=== PATIENT | female | born 2000 | race Two or more races ===

== ENCOUNTER 2023-04-02 03:31 | Emergency (ER) | payer SELFPAY ==
[2023-04-02 04:21] LABS: APPEARANCE,URINE CLEAR; BILIRUBIN,URINE NEGATIVE (NEGATIVE); COLOR,URINE YELLOW; GLUCOSE,URINE NEGATIVE (NEGATIVE); KETONES,URINE NEGATIVE (NEGATIVE); LEUKOCYTE ESTERASE,URINE NEGATIVE (NEGATIVE); NITRITE,URINE NEGATIVE (NEGATIVE); OCCULT BLOOD,URINE NEGATIVE (NEGATIVE); PROTEIN,URINE NEGATIVE (NEGATIVE)
[2023-04-02] MEDS ORDERED: Polyethylene Glycol 3350 Powder 17 GM Packet PO ONE (04:27)
[2023-04-02 04:29] LABS: BASOPHILS PERCENT AUTO 0.3 % (0.0-1.5); EOSINOPHILS ABSOLUTE AUTO 0.3 K/uL (0.0-0.7); HEMATOCRIT 40.4 % (36.0-46.0); HEMOGLOBIN 12.9 g/dL (12.0-16.0); LYMPHOCYTES ABSOLUTE AUTO 2.8 K/uL (0.6-2.4); LYMPHOCYTES PERCENT AUTO 28.3 % (16.0-40.0); MEAN CORPUSCULAR HEMOGLOBIN 27.3 pg (27.0-32.0); MEAN CORPUSCULAR HGB CONC 31.9 g/dL (31.0-37.0); MEAN CORPUSCULAR VOLUME 85.4 fL (80.0-98.0); MONOCYTES ABSOLUTE AUTO 0.9 K/uL (0.0-0.8); MONOCYTES PERCENT AUTO 8.5 % (0.0-15.0); NEUTROPHILS PERCENT AUTO 59.9 % (48.0-80.0); NRBC ABSOLUTE 0 K/uL; PLATELET COUNT,PLT 378 K/uL (150-400); RED BLOOD CELL COUNT 4.73 M/uL (4.30-5.90); WHITE BLOOD CELL COUNT,WBC 9.99 K/uL (4.0-11.0)
[2023-04-02 04:46] LABS: A/G RATIO 0.9 (0.9-1.6); ALBUMIN 3.3 g/dL (3.4-5.0); BILIRUBIN TOTAL 0.3 mg/dL (0.2-1.0); CALCIUM 8.3 mg/dL (8.5-10.1); CARBON DIOXIDE,CO2 26.6 mmol/L (21.0-32.0); CREATININE 0.8 mg/dL (0.6-1.0); EST CRCL DRUG DOSING (CG) 96.06 mL/min; POTASSIUM,K 3.4 mmol/L (3.5-5.1)
== END 2023-04-02 05:15 | disposition home or self-care (01) ==
LOC: MW.ED 03:31
DX: R10.9 Unspecified abdominal pain (principal); Z91.09 Other allergy status, other than to drugs and biological substances
CPT/HCPCS: 36415; 80053; 81003; 83690; 84703; 85025; 99284; A9270; 99283

== ENCOUNTER 2025-05-12 18:14 | Inpatient (IN) | payer BC, MEDICAID ==
[2025-05-12] MEDS ORDERED: Sodium Chloride 0.9% 10 ML Syringe FLUSH PRN (20:32)
[2025-05-12] MEDS ORDERED: Carboprost Tromethamine 250 MCG/1 mL Vial IM PRN (20:32)
[2025-05-12] MEDS ORDERED: Sodium Chloride 0.9% 2.5 ML Syringe FLUSH PRN (20:32)
[2025-05-12] MEDS ORDERED: Water For Irrigation,Sterile 1,000 ML Container IRR PRN (20:32)
[2025-05-12] MEDS ORDERED: Oxytocin/0.9 % Sodium Chloride 30 UNIT/500 ML BAG IV SCH (20:45)
[2025-05-12 21:44] LABS: MEAN PLATELET VOLUME 9.2 fL (9.4-12.3); NRBC ABSOLUTE 0.00 K/uL (0.00-0.02); NRBC PERCENT 0.0 /100WBC (0.0-0.2); PLATELET COUNT,PLT 379 K/uL (150-400); RED BLOOD CELL COUNT 3.97 M/uL (4.10-5.30); WHITE BLOOD CELL COUNT,WBC 12.31 K/uL (3.9-11.3)
[2025-05-12] MEDS ORDERED: Terbutaline 1 MG/ML SDV SUBCUT PRN (22:43)
[2025-05-12] MEDS: Misoprostol 25 MCG (1/4 of 100 MCG) Tab VAG PRN (23:05)
[2025-05-12] MEDS: Misoprostol 25 MCG (1/4 of 100 MCG) Tab PO PRN (23:05)
[2025-05-13] MEDS: Butorphanol 1 MG/ML SDV IVPUSH PRN (04:56)
[2025-05-13] MEDS: Lactated Ringers 1,000 ML IV SCH (07:30)
[2025-05-13] MEDS ORDERED: ePHEDrine 50 MG/ML SDV IVPUSH PRN (07:41)
[2025-05-13] MEDS ORDERED: dexmedeTOMIDine HCl 200 MCG/2 ML SDV EPIDUR SCH (07:45)
[2025-05-13] MEDS: Ropivacaine HCl/PF 400 MG in Premix Bag 1 BAG EPIDUR SCH (08:22)
[2025-05-13] MEDS: Oxytocin/0.9 % Sodium Chloride 30 UNIT/500 ML BAG IV SCH (10:37)
[2025-05-13] MEDS: Ondansetron 4 MG/2 ML SDV IVPUSH PRN (15:52)
[2025-05-13] MEDS ORDERED: Aluminum Hydroxide/Magnesium Hydroxide/Simethicone Susp 30 ML Cup PO PRN (18:14)
[2025-05-13] MEDS ORDERED: Benzocaine/Menthol 20%-0.5% Spray 78 GM Cannister TOP PRN (18:14)
[2025-05-13 18:24] LABS: PH,UMBILICAL ARTERIAL 7.19 (7.18-7.38); PH,UMBILICAL VENOUS 7.33 (7.25-7.45)
[2025-05-13] MEDS: Witch Hazel Medicated Pads 40/Jar TOP PRN (21:13)
[2025-05-13] MEDS: Lanolin 100% Cream 7 GM Tube TOP PRN (21:14)
[2025-05-14 05:43] LABS: MEAN PLATELET VOLUME 9.4 fL (9.4-12.3); NRBC ABSOLUTE 0.00 K/uL (0.00-0.02); NRBC PERCENT 0.0 /100WBC (0.0-0.2); PLATELET COUNT,PLT 299 K/uL (150-400); RED BLOOD CELL COUNT 3.37 M/uL (4.10-5.30); WHITE BLOOD CELL COUNT,WBC 22.10 K/uL (3.9-11.3)
[2025-05-14 05:58] LABS: LYMPHOCYTES ABSOLUTE MAN 2.87 K/uL (1.00-4.80); LYMPHOCYTES PERCENT MAN 13 % (24-44); MONOCYTES ABSOLUTE MAN 2.65 K/uL (0.00-0.80); MONOCYTES PERCENT MAN 12 % (0-8); SEG NEUTROPHILS ABSOLUTE MAN 16.58 K/uL (1.80-7.70); SEG NEUTROPHILS PERCENT MAN 75 % (41-71)
[2025-05-14] MEDS ORDERED: Ketorolac 30 MG/ML SDV IVPUSH SCH (12:00)
== END 2025-05-14 20:50 | disposition home or self-care (01) | DRG 560 ==
LOC: MW.OB 18:14 → OBSVTOIN 05-13 18:14 → MW.OB 05-13 21:50
PROVIDERS: ADMIT Obstetrics & Gynecology; ATTEND Obstetrics & Gynecology
PROC: 10E0XZZ Delivery of Products of Conception, External Approach (ICD-10-PCS; principal; 2025-05-13)
PROC: 3E0R3BZ Introduction of Anesthetic Agent into Spinal Canal, Percutaneous Approach (ICD-10-PCS; 2025-05-13)
PROC: 3E033VJ Introduction of Other Hormone into Peripheral Vein, Percutaneous Approach (ICD-10-PCS; 2025-05-13)
PROC: 0KQM0ZZ Repair Perineum Muscle, Open Approach (ICD-10-PCS; 2025-05-13)
DX: O99.214 Obesity complicating childbirth (principal); O99.02 Anemia complicating childbirth; Z87.891 Personal history of nicotine dependence; Z79.899 Other long term (current) drug therapy; O70.1 Second degree perineal laceration during delivery; Z3A.38 38 weeks gestation of pregnancy; Z37.0 Single live birth; Z98.890 Other specified postprocedural states; O99.519 Diseases of the respiratory system complicating pregnancy, unspecified trimester; J45.909 Unspecified asthma, uncomplicated
CPT/HCPCS: 01967; 36415; 51701; 51702; 59025; 59409; 82803; 85025; 85027; 86592; 86850; 86900; 86901; A9270-GY; J0595; J2371; J2405; J2590; J2795; J7120